=== PATIENT | male | born 1965 | race Caucasian/White ===

== ENCOUNTER 2017-06-02 07:40 | Emergency (ER) | payer SELFPAY ==
--- NOTE | 2017-06-02 14:11 | RAD ---
Exam performed: 3 views right hand. History: Right hand pain status post injury. Date of service: 06/02/17. Comparison: None available 3 views right hand findings: There is a oblique slightly displaced fracture distal metaphysis of the fifth metacarpal. There is diffuse overlying soft tissue swelling. The remainder alignment appears preserved. No soft tissue foreign body. Impression: Minimally displaced oblique oriented acute fracture distal metaphysis fifth metacarpal.
== END 2017-06-02 09:19 | disposition home or self-care (01) ==
LOC: ER 07:40
DX: S62.396A Other fracture of fifth metacarpal bone, right hand, initial encounter for closed fracture (principal); G89.29 Other chronic pain; W22.8XXA Striking against or struck by other objects, initial encounter; Y93.89 Activity, other specified; Y92.89 Other specified places as the place of occurrence of the external cause; Y99.8 Other external cause status
CPT/HCPCS: 29125; 73130; 99284

== ENCOUNTER 2017-06-17 09:19 | Emergency (ER) | payer SELFPAY ==
[~2017-06-17] VITALS: Ht 177.8 cm; Wt 68.0 kg
[2017-06-17 09:50] VITALS: BP 132/83
--- NOTE | 2017-06-17 09:52 | PHYS DOC ---
Adult General Chief Complaint Chief Complaint: HAND PROBLEM [facility] HPI Patient is a 51 year old male presents to the emergency department stating that he was seen here on 06/01 and was diagnosed with a fracture of his right hand. Patient states he's been placed in a splint. Patient states that he attempted to follow-up with orthopedic however they were wanting [facility] to no insurance. Patient states that he continues to have pain and swelling in the right hand. He denies any injury or trauma. He states that he has been wearing the splint approximately 23 hours a day. He also states that he uses a walker to help with ambulation however does not have a walker noted with him today. Patient states that he has elevated the hand however has not used the sling that has been provided for him. Patient is [id number]. Review of Systems Review of Systems Constitutional: Denies fever or chills [] Eyes: Denies change in visual acuity, redness, or eye pain [] HENT: Denies nasal congestion or sore throat [] Respiratory: Denies cough or shortness of breath [] Cardiovascular: No additional information not addressed in HPI [] GI: Denies abdominal pain, nausea, vomiting, bloody stools or diarrhea [] : Denies dysuria or hematuria [] Musculoskeletal: Denies back pain. Complaint of right hand pain Integument: Denies rash or skin lesions [] Neurologic: Denies headache, focal weakness or sensory changes [] Endocrine: Denies polyuria or polydipsia [] Allergies Allergies Allergies Coded Allergies Type Severity Reaction Last Updated Verified No Known Drug Allergies 06/17/17 No Physical Exam Physical Exam Constitutional: Well developed, well nourished, no acute distress, non-toxic appearance. [] HENT: Normocephalic, atraumatic, bilateral external ears normal, oropharynx moist, no oral exudates, nose normal. [] Eyes: PERRLA, EOMI, conjunctiva normal, no discharge. [] Neck: Normal range of motion, no tenderness, supple, no stridor. [] Cardiovascular:Heart rate regular rhythm, no murmur [] Lungs & Thorax: Bilateral breath sounds clear to auscultation [] Skin: Warm, dry, no erythema, no rash. [] Back: No tenderness Extremities: Right hand tenderness, no cyanosis, no clubbing, ROM intact, no edema. Patient was noted to have deformity noted to the right hand as well as swelling. Patient with good sensation noted to his fingers he is able to move the fingers without difficulty. Radial pulse 2+. Cap refill brisk less than 2 seconds. Patient did have his splint in place upon arrival. However once I entered the room for assessment patient immediately take the splint off. Neurologic: Alert and oriented X 3, normal motor function, normal sensory function, no focal deficits noted. [] Psychologic: Affect normal, judgement normal, mood normal. [] Current Patient Data Vital Signs Vital Signs Date Time Temp Pulse Resp B/P (MAP) Pulse Ox O2 Delivery O2 Flow Rate FiO2 06/17/17 09:50 98.0 82 18 98 Room Air 98.0 EKG EKG [] Radiology/Procedures Radiology/Procedures [][facility] [address] [place] [address] IMAGING REPORT Signed PATIENT: LENARD RICHARDS ACCOUNT: [id number] : 1965 LOCATION: ER AGE: 51 SEX: M EXAM STATUS: REG ER ORD. PHYSICIAN: OBED ADAMS APRN REASON: pain to 5th metacarpal hx fracture 06/01 PROCEDURE: HAND RIGHT 3V Indication follow-up fracture. AP oblique and lateral views of the right hand were obtained and are compared to an examination 06/02/2017. Known fracture involving the fifth metacarpal neck is reproduced. There has been no significant change in position of fracture fragments. There has been no significant interval healing. IMPRESSION: No significant change in known fracture associated with the fifth metacarpal DICTATED and SIGNED BY: STEFAN PORRAS MD DATE: 06/17/17 1009 CC: OBED ADAMS APRN; NO PCP; NON,STAFF ~ Course & Med Decision Making Course & Med Decision Making Pertinent Labs and Imaging studies reviewed. (See chart for details) Patient was re-x-rayed today in the emergency department. Radiologist states that there is no change in his x-ray from 06/01. Patient will be placed back in an ulnar gutter splint with recommendations to follow-up with orthopedic. He may also follow-up with [facility] for further evaluation with orthopedic. Also recommended that the patient did not remove the splint. Recommended ice packs on 20 minutes off 20 minutes several times a day elevation as much as possible. Recommended Tylenol or ibuprofen for pain and discomfort. Patient will be discharged home in stable condition signs symptoms to return back to emergency department been provided. All questions and concerns have been answered at patient's bedside. [] Dragon Disclaimer Dragon Disclaimer This electronic medical record was generated, in whole or in part, using a voice recognition dictation system. Departure Departure Impression: Primary Impression: Fracture of fifth metacarpal bone Disposition: HOME, SELF-CARE Condition: STABLE Referrals: NO PCP (PCP) JORDYN HUANG II, MD Patient Instructions: Arm Sling Use-Brief, Hand Fracture, Fifth Metacarpal, Splint Care, [id number] Additional Instructions: Activity as tolerated Tylenol or Ibuprofen for pain and discomfort Ice packs on 20 minutes and off 20 minutes several times day Elevation as much as possible Keep the splint in place until you followup with orthopedic Followup with orthopedic in next week Return to emergency department as needed for signs and symptoms that become worse. Splinting Splinting : Location: right hand Hand-Made Type: orthoglass Splint: ulnar Pre-Proc Neuro Vasc Exam: normal Post-Proc Neuro Vasc Exam: normal Problem Qualifiers Primary Impression: Fracture of fifth metacarpal bone Encounter type: subsequent encounter Fracture type: closed Metacarpal location: unspecified portion of metacarpal Laterality: right OBED ADAMS APRN Jun 17, 2017 09:52
--- NOTE | 2017-06-17 10:12 | RAD ---
Indication follow-up fracture. AP oblique and lateral views of the right hand were obtained and are compared to an examination 06/02/2017. Known fracture involving the fifth metacarpal neck is reproduced. There has been no significant change in position of fracture fragments. There has been no significant interval healing. IMPRESSION: No significant change in known fracture associated with the fifth metacarpal
== END 2017-06-17 10:35 | disposition home or self-care (01) ==
LOC: ER 09:19
DX: S62.336A Displaced fracture of neck of fifth metacarpal bone, right hand, initial encounter for closed fracture (principal); X58.XXXA Exposure to other specified factors, initial encounter; Y93.89 Activity, other specified; Y99.8 Other external cause status; Y92.89 Other specified places as the place of occurrence of the external cause
CPT/HCPCS: 29125; 73130; 99284-25

== ENCOUNTER 2018-05-28 09:15 | Emergency (ER) | payer SELFPAY ==
[~2018-05-28] VITALS: Ht 175.3 cm; Wt 74.8 kg
--- NOTE | 2018-05-28 10:01 | PHYS DOC ---
Past Medical History Past Medical History: Other Additional Past Medical Histor: chronic back pain Past Surgical History: No Surgical History Smoking: Cigarettes Alcohol Use: None Drug Use: None, Marijuana Adult General Chief Complaint Chief Complaint: BACK PAIN - NO INJURY HPI HPI This is a pleasant 52-year-old male presenting to the emergency department with low back pain that radiates into the left buttocks and left knee. He denies any recent trauma. He has had this pain for more than 10 years. No changes in the type or quality of the pain. It is not a migrating pain. He denies abdominal pain. Review of systems is negative for polyuria dysuria fevers chills abdominal pain nausea or vomiting. All other review of systems is negative unless otherwise noted in history of present illness. ED course: 52-year-old male presenting to the emergency department today with lower back pain that radiates into his left buttocks and knee. Patient reports that this pain is similar to all his previous sciatic pains. [id number] ultrasound of the aorta performed by myself in 3 transverse views along with a longitudinal view show the aorta to be between 2.25-2.75 cm. I do not believe that the patient's symptoms are likely to be caused by aortic catastrophe. We will prescribe the patient oral ibuprofen and Flexeril to follow-up with his PCP in 2-3 days.The patient has been examined and was not found to have an emergency medical condition. The patient was then discharged home in stable condition to follow up with their primary care physician over the next 2-3 days. They were to return if their symptoms worsened or if they were concerned for any reason. They were also instructed to return to the emergency department if they were unable to get the recommended and appropriate follow- up. [id number] discharge instructions and return precautions were given. Patient's questions were answered to their satisfaction. Patient is comfortable with plan. Review of Systems Review of Systems SEE ABOVE. Allergies Allergies Allergies Coded Allergies Type Severity Reaction Last Updated Verified No Known Drug Allergies 06/17/17 No Physical Exam Physical Exam SEE ABOVE Constitutional: Well developed, well nourished, no acute distress, non-toxic appearance. [] HENT: Normocephalic, atraumatic, bilateral external ears normal, oropharynx moist, no oral exudates, nose normal. [] Eyes: PERRLA, EOMI, conjunctiva normal, no discharge. [] Neck: Normal range of motion, no tenderness, supple, no stridor. [] Cardiovascular:Heart rate regular rhythm, no murmur [] Lungs & Thorax: Bilateral breath sounds clear to auscultation [] Abdomen: Bowel sounds normal, soft, no tenderness, no masses, no pulsatile masses. [] Skin: Warm, dry, no erythema, no rash. [] Back: No tenderness, no CVA tenderness. [] Extremities: No tenderness, no cyanosis, no clubbing, ROM intact, no edema. [] Neurologic: Alert and oriented X 3, normal motor function, normal sensory function, no focal deficits noted. [] Psychologic: Affect normal, judgement normal, mood normal. [] Current Patient Data Vital Signs Vital Signs Date Time Temp Pulse Resp B/P (MAP) Pulse Ox O2 Delivery O2 Flow Rate FiO2 05/28/18 09:25 98.0 77 18 147/93 (111) 98 Room Air 98.0 EKG EKG [] Radiology/Procedures Radiology/Procedures [] Course & Med Decision Making Course & Med Decision Making Pertinent Labs and Imaging studies reviewed. (See chart for details) [] Dragon Disclaimer Dragon Disclaimer This electronic medical record was generated, in whole or in part, using a voice recognition dictation system. Departure Departure Impression: Primary Impression: Low back pain Disposition: 01 HOME, SELF-CARE Condition: STABLE Referrals: NO PCP (PCP) LESLIE FANG MD Patient Instructions: Back Pain, Adult Additional Instructions: Thank you for allowing us to participate in your care today. Return to the emergency department you have any new or worsening symptoms, or if you are concerned for any reason. Return to emergency department if you have any new or concerning symptoms including but not limited to fever, chills, nausea, vomiting, intractable pain, any new rashes, chest pain, shortness of air , uncontrolled bleeding, difficulty breathing, and/or vision loss. Follow up with your primary care physician within 3 days. Call your Primary Doctor tomorrow and inform them of your visit today. If you do not have a primary care provider we are happy to provide you with a list of our primary care providers contact information. This condition should be evaluated by your primary care physician and any recommended consulting services for continued management within 2-3 days after discharge. If at any time, you are having difficulty getting into your primary care doctor or a specialist, return to the emergency department. You may have been prescribed medication or given medication in the emergency department that can change in your level of thinking and ability to operate machinery. Many prescribed medications can cause this. Some commonly prescribed medications include hydrocodone, ativan, and benadryl. Be sure to check with your pharmacist and ask if the medications you've prescribed can affect your level of consciousness. I recommend not operating heavy machinery or driving while on medication such as these. Scripts Ibuprofen (IBUPROFEN) 400 Mg Tablet 400 MG PO PRN Q8HRS PRN for PAIN, #10 TAB 0 Refills Prov: LUDIVINA DOSS MD 05/28/18 Cyclobenzaprine Hcl (CYCLOBENZAPRINE HCL) 5 Mg Tablet 1 TAB PO TID PRN PRN for PAIN, #20 TAB Prov: LUDIVINA DOSS MD 05/28/18 LUDIVINA DOSS MD May 28, 2018 10:01
[2018-05-28] MEDS ORDERED: IBUP-1027 PO (10:06)
[2018-05-28] MEDS ORDERED: CYCL5TAB PO (10:06)
[2018-05-28 10:40] VITALS: BP 148/95
== END 2018-05-28 10:44 | disposition home or self-care (01) ==
LOC: ER 09:15
DX: M54.5 Low back pain (principal); F17.210 Nicotine dependence, cigarettes, uncomplicated
CPT/HCPCS: 99283